=== PATIENT | female | born 1965 | race Caucasian/White ===

== ENCOUNTER → 2023-01-27 13:45 | Outpatient (CLI) | payer OTHER, SELFPAY ==
--- NOTE | 2023-01-27 | DI.ECHO.S_ITS ---
[facility] +---------+ : : [address] : [place] : : : : [id number] : : : : Phone: [phone]---------+ Echocardiogram Report + + :Name: SHALOM RODRÍGUEZ Study Date: 01/27/2023 Height: 70 in : :[facility] ReadingLocation: Weight: 165 lb : : Gender: Female BSA: 1.9 m2 : :: 1965 Age: 57 yrs BP: 108/73 mmHg: :Reason For Study: Atrial Fibrillation : :Ordering Physician: RAHEEM, : :LYRIC Ibrahim Performed By: Martha Louei : :Referring: LYRIC HOLCOMB : + + Interpretation Summary The ejection fraction is estimated to be 60-65%. Diastolic parameters suggest probable normal left ventricular diastolic function and normal filling pressures. The right ventricle is normal in size and function. Injection of contrast documented a small interatrial shunt. No significant valvular abnormalities. Pulmonary artery pressures cannot be estimated because of the lack of a measurable TR jet velocity but the IVC suggests a CVP of around 3 mmHg. Procedure: A two-dimensional transthoracic echocardiogram with color flow and Doppler was performed. The study quality was technically adequate. There is no prior echocardiogram noted for this patient. A saline contrast injection was performed to assess for cardiac shunting. The patient was in normal sinus rhythm during the exam. Left Ventricle: The left ventricle is normal in size. The ejection fraction is estimated to be 60-65%. Diastolic parameters suggest probable normal left ventricular diastolic function and normal filling pressures. Right Ventricle: The right ventricle is normal in size and function. Atria: The left atrial size is normal. Right atrial size is normal. Injection of contrast documented an interatrial shunt. Mitral Valve: The mitral valve is normal. There is no mitral valve stenosis. There is trace mitral regurgitation. Aortic Valve: The aortic valve is trileaflet. The aortic valve opens well. There is no aortic valve stenosis. No aortic regurgitation is present. Tricuspid Valve: The tricuspid valve is normal. There is no tricuspid stenosis. There is trace tricuspid regurgitation. Pulmonary artery pressures cannot be estimated because of the lack of a measurable TR jet velocity but the IVC suggests a CVP of around 3 mmHg. Pulmonic Valve: The pulmonic valve leaflets are thin and pliable; valve motion is normal. There is no pulmonic valvular stenosis. There is trace pulmonic regurgitation. Great Vessels: The aortic root is normal size. The ascending aorta is normal in size. The pulmonary artery is normal size. The IVC is of normal diameter and collapses greater than 50% with a sniff. This suggests a low right atrial pressure of 3 mm Hg. Pericardium/ Pleura There is no pericardial effusion. There is no pleural effusion. MMode/2D Measurements & Calculations LVIDd: 3.9 cm LVOT diam: 1.7 cm LVIDs: 2.0 cm Ao root diam: 2.8 cm FS: 48.7 % asc Aorta Diam: 3.0 cm EPSS: 0.60 cm IVSd: 0.80 cm LVPWd: 0.80 cm LV louie. diameter/BSA (cm/m^2): 2.0 LV sys. diameter/BSA (cm/m^2): 1.0 LA A2 area: 17.7 cm2 RA long axis: 5.0 cm LA A4 area: 9.2 cm2 RA area: 13.8 cm2 LA length (vol): 5.1 cm RA vol: 32.1 ml LA vol: 27.1 ml RA : 16.7 ml/m2 LA vol index: 14.1 ml/m2 RVD1 (basal): 3.5 cm LVLs ap4: 5.7 cm LVLd ap2: 7.0 cm TAPSE_phl: 2.5 cm LVLs ap2: 5.8 cm Doppler Measurements & Calculations Ao V2 max: 108.3 cm/sec LVOT Max J Luis: 92.2 cm/sec Ao V2 mean: 72.4 cm/sec LV V1 max P.4 mmHg Ao max P.0 mmHg LV V1 VTI: 19.4 cm Ao mean P.3 mmHg ESTELA(I,D): 1.9 cm2 Ao V2 VTI: 23.8 cm ESTELA(V,D): 1.9 cm2 sev ratio: 0.82 ESTELA indexed to BSA (cm^2/m^2): 0.96 MV E max j luis: 63.1 cm/sec TR max j luis: 188.0 cm/sec MV A max j luis: 80.2 cm/sec TR max P.1 mmHg MV E/A: 0.79 PA V2 max: 93.4 cm/sec Med Peak E' J Luis: 7.9 cm/sec PA V2 mean: 63.5 cm/sec E/E' med: 8.0 PA mean P.0 mmHg Lat Peak E' J Luis: 9.6 cm/sec PA pr(Accel): 14.6 mmHg E/E' lat: 6.6 E/e' average: 7.3 MV dec time: 0.24 sec SV(LVOT): 44.0 ml AV VR_phl: 0.85 ESTELA(VTI)/BSA_phl: 0.96 Reading Physician:08:39 PM
== END ==
PROVIDERS: PCP Registered Nurse; Referring Provider Internal Medicine Cardiovascular Disease; Visit Provider Internal Medicine Cardiovascular Disease
DX: I48.0 Paroxysmal atrial fibrillation (principal)
CPT/HCPCS: 93306

== ENCOUNTER → 2023-06-18 15:14 | Outpatient (CLI) | payer OTHER, SELFPAY ==
--- NOTE | 2023-06-18 15:16 | DI.NM.S_ITS ---
PROCEDURE: NM EXERCISE TREADMILL NON NUC COMPARISON: None INDICATIONS: Chest pain, unspecified FINDINGS: Rest ECG sinus rhythm. Avery protocol 7:20, maximum heart rate 155 bpm (96% peak predicted), maximum blood pressure 140/86, 7.3 METS, GEOVANNI -4%. Exercise ECG sinus tachycardia, no ST segment changes, rare PVCs. The patient complained of substernal chest pain that radiated to the neck around 4 minutes into exercise but did not increase with continued exertion. IMPRESSION: Low risk study. No evidence of exercise-induced ischemia or arrhythmia. Normal hemodynamic response. Dictated by: Lyric Holcomb D.O. on 06/18/2023 at 17:47 Approved by: Lyric Holcomb D.O. on 06/18/2023 at 17:50
== END ==
PROVIDERS: PCP Registered Nurse; Referring Provider Internal Medicine Cardiovascular Disease; Visit Provider Internal Medicine Cardiovascular Disease
DX: R07.9 Chest pain, unspecified (principal)
CPT/HCPCS: 93017